=== PATIENT | male | born 1955 | race Caucasian/White ===

== ENCOUNTER 2020-11-01 18:37 | Emergency (ER) | payer BC, SELFPAY ==
[2020-11-01 18:43] VITALS: BP 151/78; PULSE 76; RESP 18; TEMP 36.5; O2SAT 98
[2020-11-01] MEDS: Tetracaine 0.5% 4 ML BTL OP (19:11)
[2020-11-01] MEDS: Fluorescein STRIPS 100/BOX 1 MG OP (19:12)
--- NOTE | 2020-11-01 19:35 | W.ED.GENAD ---
Discharge Plan Disposition Patient Disposition: HOME Condition: Good Discharge Details Clinical Impression: Foreign body in eye Primary Care Provider: Unknown,Unknown ED Provider: Keiko Fraser Home Meds and New Rx's Prescriptions: No Action No Known Home Meds RF: 0 Discharge Instructions Instructions: Eye Foreign Body (ED) Additional Instructions: use ointment as prescribed follow-up with [facility] tuesday follow-up for primary care physician as well return with vision changes or with any new or worsening complaints Discharge Data Discharge Date/Time-TO BE ENTERED AT DEPARTURE: 11/01/20 19:55 Medical Decision Making Patient without evidence of globe injury on exam, negative Adrianna sign, visual acuity intact, nursing notes reviewed Small foreign body noted, rust ring removed with bur and 18-gauge needle to remove foreign body which is likely uses feel Tetanus was updated as patient has not had primary care physician in the past 10 years and is unsure when his last tetanus was administered Care management was established for patient PCP follow-up [facility] will need to follow-up with patient in the outpatient setting to ensure that the cardiac health appropriately Patient discharged home with erythromycin ointment return precautions discussed Differential Diagnosis Differential Diagnosis: Corneal abrasion, foreign body in eye, globe rupture HPI General Date/Time Provider Initiated Documentation: 11/01/20 18:38. Limitations to Documentation: no limitations. Information obtained by: patient. HPI Narrative: This very pleasant 65-year-old male presents with foreign body to left eye. He is otherwise reportedly healthy but does not have a primary care physician. He states he was grinding some metal and wearing protective glasses, however after he finished grinding, he noticed some discomfort to his left eye at approximately 830. He states that he think he sees a piece of metal in his eye. He was grinding steel. He denies high impact injury. He denies any headache or vision change. His tetanus is not up to date. Related Data Home Medications Medication Instructions Recorded Confirmed Unknown [No Known Home Meds] 11/01/20 11/01/20 Allergies Allergy/AdvReac Type Severity Reaction Status Date / Time No Known Allergies Allergy Unverified 11/01/20 18:45 General Stated Complaint: EyeProblem CECILIA: 4 Review of Systems Narrative: Review of systems obtained x3 aside from where indicated in HPI PFSH Social History Smoking/Tobacco Use Status: Current every day Tobacco Type: cigarettes Smoking risk assessment performed?: Yes Alcohol Intake: current Alcohol Intake frequency: holidays/special occasions only Drug use: Never Substance use type: does not use Do you feel safe at home: Yes Do you feel safe in your relationship?: Yes Exam Const General: cooperative Eyes Other: Pupils equal round reactive to light and accommodation, foreign body was noted to the 10 o'clock position overlying the iris, there is a negative Adrianna sign, there is a rust ring surrounding the piece of metal Course Vital Signs Vital signs: Vital Signs Temperature 36.5 C 11/01/20 18:43 Pulse 76 11/01/20 18:43 Respiratory Rate 18 11/01/20 18:43 Blood Pressure 151/78 H 11/01/20 18:43 Pulse Oximetry 98 11/01/20 18:43 Temperature 36.5 C 11/01/20 18:43 Temperature Source Temporal Artery Scan 11/01/20 18:43 Pulse 76 11/01/20 18:43 Respiratory Rate 18 11/01/20 18:43 Respiratory Effort Non-Labored 11/01/20 18:46 Blood Pressure 151/78 H 11/01/20 18:43 Blood Pressure Position Sitting 11/01/20 18:43 Pulse Oximetry 98 11/01/20 18:43 Oxygen Delivery Method Room Air 11/01/20 18:43 Oxygen Flow Rate 0 11/01/20 18:43 Pain Level 3 11/01/20 18:43
--- NOTE | 2020-11-01 19:44 | NUR.NOTE ---
Referral and note faxed to Nilsae to follow up on 11/03 or 11/04 Asif Rojas, also to Care Management to establish pcp, routinely.Nursing Note:
[2020-11-01] MEDS: Erythromycin Ophth Oint 3.5 GM TUBE OD (19:48)
--- NOTE | 2020-11-03 11:44 | PDOC.ERCMPRO ---
- If Service Date Differs Date of service: 11/03/20 Time of Service: 11:44 Care Management Progress Note Ludwin is seen in the ED on 11/01/20 for a rust ring in his eye. At the request of ED provider, CM facilitates a referral to Keely Reid MD, of [facility], on-call provider, to assist patient in obtaining a follow-up appointment and in establishing care with a PCP.
== END 2020-11-01 19:55 | disposition home or self-care (01) ==
PROVIDERS: Emergency Provider Physician Assistant
DX: T15.82XA Foreign body in other and multiple parts of external eye, left eye, initial encounter (principal); W45.8XXA Other foreign body or object entering through skin, initial encounter
CPT/HCPCS: 90471; 99284; 99283

== ENCOUNTER 2023-01-05 12:02 | Outpatient (REF) | payer MEDICARE, SELFPAY | END 2023-01-05 12:03 | disposition home or self-care (01) | LOC: LBN 12:02 | PROVIDERS: Visit Provider Nurse Practitioner Family | DX: L72.0 Epidermal cyst; L98.8 Other specified disorders of the skin and subcutaneous tissue | CPT/HCPCS: 87070; 87205 ==

== ENCOUNTER → 2023-01-10 08:12 | Outpatient (BNVA) | payer SELFPAY | PROVIDERS: Referring Provider Nurse Practitioner Family; Visit Provider Surgery | DX: L72.3 Sebaceous cyst (principal); L08.9 Local infection of the skin and subcutaneous tissue, unspecified | CPT/HCPCS: 99202; 99213 ==